=== PATIENT | male | born 1945 | race Caucasian/White ===

== ENCOUNTER 2018-08-20 10:46 | Outpatient (CLI) | payer MEDICARE, OTHER ==
--- NOTE | 2018-08-20 12:12 | RAD ---
2 VIEWS CHEST: Date: 08/20/18 COMPARISON: 01/04/17. HISTORY: Dyspnea. FINDINGS: Two views of the chest show normal sized cardiomediastinal silhouette with atherosclerotic calcificat ions in the aorta. There is no evidence of consolidation, mass, or pleural effusion. Persistent lucen cy in the left apex may represent a bulla. IMPRESSION: No evidence of acute cardiopulmonary disease. POS: [facility]
== END 2018-08-20 10:47 | disposition home or self-care (01) ==
LOC: RAD 10:46
PROVIDERS: ATTEND Internal Medicine Critical Care Medicine
DX: R06.00 Dyspnea, unspecified (principal)
CPT/HCPCS: 71046

== ENCOUNTER 2018-10-29 10:33 | Outpatient (CLI) | payer MEDICARE, OTHER ==
--- NOTE | 2018-10-29 12:38 | RAD ---
CHEST TWO VIEWS: History: Dyspnea. Comparison: 08-20-18 FINDINGS: Cardiac silhouette is upper limits of normal in size. Pulmonary vasculature is unremarkable. Mediasti num is midline. Chronic interstitial markings at the lung bases are stable. There is no confluent air space consolidation, pneumothorax, or pleural fluid evident. IMPRESSION: No active cardiopulmonary abnormalities are demonstrated. POS: [facility]
== END 2018-10-29 10:34 | disposition home or self-care (01) ==
LOC: RAD 10:33
PROVIDERS: ATTEND Internal Medicine Critical Care Medicine
DX: R06.00 Dyspnea, unspecified (principal)
CPT/HCPCS: 71046

== ENCOUNTER 2019-05-20 12:12 | Outpatient (CLI) | payer MEDICARE, OTHER ==
--- NOTE | 2019-05-20 12:37 | RAD ---
EXAM: Two views chest PROVIDED CLINICAL HISTORY: Pulmonary nodules. COMPARISON: 10/29/2018. FINDINGS: Cardiac silhouette is at the upper limits of normal in size to borderline enlarged. Epicardial fat pa d is seen at the left lung base. Chronic lung changes are seen with bullous emphysematous changes in the upper lobes. Mild degenerative changes are seen in the spine. Chest is stable compared to prio r exam. IMPRESSION: 1. No acute cardiopulmonary process. 2. Stable chronic lung changes. 3. Borderline cardiomegaly..
== END 2019-05-20 12:13 | disposition home or self-care (01) ==
LOC: RAD 12:12
PROVIDERS: ATTEND Internal Medicine Critical Care Medicine
DX: R06.00 Dyspnea, unspecified (principal)
CPT/HCPCS: 71046

== ENCOUNTER 2020-12-30 09:34 | Outpatient (CLI) | payer MEDICARE, OTHER | END 2020-12-30 09:35 | disposition home or self-care (01) | LOC: BICRAD 09:34 | PROVIDERS: ATTEND Internal Medicine Critical Care Medicine | DX: R06.00 Dyspnea, unspecified (principal); J43.9 Emphysema, unspecified; I51.7 Cardiomegaly | CPT/HCPCS: 71046 ==

== ENCOUNTER 2021-10-31 09:43 | Outpatient (CLI) | payer MEDICARE, OTHER | END 2021-10-31 09:44 | disposition home or self-care (01) | LOC: RAD 09:43 | PROVIDERS: ATTEND Internal Medicine Critical Care Medicine | DX: R06.00 Dyspnea, unspecified (principal) | CPT/HCPCS: 71046 ==

== ENCOUNTER 2022-11-02 10:18 | Outpatient (CLI) | payer MEDICARE, OTHER | END 2022-11-02 10:19 | disposition home or self-care (01) | LOC: RAD 10:18 | PROVIDERS: ATTEND Internal Medicine Critical Care Medicine | DX: R06.00 Dyspnea, unspecified (principal); I70.0 Atherosclerosis of aorta; I25.10 Atherosclerotic heart disease of native coronary artery without angina pectoris | CPT/HCPCS: 71046 ==

== ENCOUNTER 2023-11-14 11:01 | Outpatient (CLI) | payer MEDICARE, OTHER | END 2023-11-14 11:02 | disposition home or self-care (01) | LOC: RAD 11:01 | PROVIDERS: ATTEND Internal Medicine Critical Care Medicine | DX: R06.00 Dyspnea, unspecified (principal); I70.0 Atherosclerosis of aorta; I51.7 Cardiomegaly; M47.814 Spondylosis without myelopathy or radiculopathy, thoracic region | CPT/HCPCS: 71046 ==